=== PATIENT | female | born 1955 | race Asian ===

== ENCOUNTER 2017-05-22 10:11 | Emergency (ER) | payer OTHER ==
[~2017-05-22] VITALS: Ht 160 cm; Wt 65.3 kg
[2017-05-22 10:50] VITALS: Ht 160 cm; Wt 65.3 kg
[2017-05-22 12:08] LABS: BASOPHIL % 0.5 % (0-2); PLATELET COUNT 202 x10^3mcL (130-400); RED CELL DISTRIBUTION WIDTH 13.1 % (11.5-14.5)
[2017-05-22 12:37] LABS: ALBUMIN 4.1 g/dL (3.4-5.0); ALKALINE PHOSPHATASE 89 U/L (46-116); ALT/SGPT 47 U/L (14-59); BILIRUBIN TOTAL 0.71 mg/dL (0.20-1.00); CARBON DIOXIDE 25.2 mmol/L (21-32); CHLORIDE SERUM 105 mmol/L (98-107); CREATININE SERUM 0.7 mg/dL (0.6-1.0); GFR1 > 60 mL/min; POTASSIUM SERUM 4.4 mmol/L (3.5-5.1); SODIUM SERUM 141 mmol/L (136-145); TOTAL PROTEIN, SERUM 7.8 g/dL (6.4-8.2)
[2017-05-22 13:11] VITALS: BP 152/88
[2017-05-22 13:12] LABS: CALCIUM 9.4 mg/dL (8.5-10.1)
[2017-05-22 13:20] LABS: GLUCOSE SERUM 117 mg/dL (74-106)
[2017-05-22 13:21] LABS: AST/SGOT 38 U/L (15-37)
== END 2017-05-22 13:11 | disposition home or self-care (01) ==
LOC: ED 10:11
PROVIDERS: Emergency Medicine
DX: R04.0 Epistaxis (principal)
CPT/HCPCS: 36415

== ENCOUNTER 2017-05-24 09:32 | Emergency (ER) | payer OTHER ==
[~2017-05-24] VITALS: Ht 160 cm; Wt 64.9 kg
[2017-05-24 10:01] VITALS: Ht 160 cm; Wt 64.9 kg
[2017-05-24 12:30] VITALS: BP 139/92
== END 2017-05-24 12:30 | disposition home or self-care (01) ==
LOC: ED 09:32
DX: Z48.00 Encounter for change or removal of nonsurgical wound dressing (principal); R51 Headache